=== PATIENT | female | born 1985 | race Caucasian/White ===

== ENCOUNTER 2018-11-07 17:12 | Inpatient (IN) | payer SELFPAY ==
[2018-11-07] MEDS ORDERED: OXYTOCIN 30 UNITS/LR 500 ML IV (18:00)
[2018-11-07] MEDS ORDERED: BUTORPHANOL 2 MG INJ IV (18:00)
[2018-11-07] MEDS ORDERED: CARBOPROST 250 MCG INJ IM (18:00)
[2018-11-07] MEDS ORDERED: IBUPROFEN 600 MG TAB PO (18:00)
[2018-11-07] MEDS ORDERED: MISOPROSTOL 200 MCG TAB PR (18:00)
[2018-11-07 18:03] LABS: ADD MAN DIFF? NO
[2018-11-07 18:05] LABS: BASOPHILS % 0.3 % (0.0-2.0); EOSINOPHILS # 0.1 10^3/ul (0.0-0.5); EOSINOPHILS % 1.3 % (0.0-7.0); HEMATOCRIT 36.4 % (37.0-47.0); HEMOGLOBIN 11.7 g/dl (12.0-16.0); LYMPHOCYTES # 1.6 10^3/ul (0.8-2.9); LYMPHOCYTES % 26.9 % (15.0-51.0); MEAN CORPUSCULAR HEMOGLOBIN 26.8 pg (29.0-33.0); MEAN CORPUSCULAR HGB CONC 32.1 g/dl (32.0-37.0); MEAN CORPUSCULAR VOLUME 83.5 fl (82.0-101.0); MONOCYTE # 0.7 10^3/ul (0.3-0.9); MONOCYTES % 10.8 % (0.0-11.0); NEUTROPHIL # 3.6 10^3/ul (1.6-7.5); NEUTROPHILS % 60.2 % (39.0-77.0); PLATELET COUNT 161 10^3/UL (140-415); RED BLOOD COUNT 4.36 10^6/ul (4.20-5.40); RED CELL DISTRIBUTION WIDTH 12.7 % (11.5-14.5)
[2018-11-07 18:25] LABS: INR 0.92; PROTIME 12.4 Sec (11.9-14.9)
[2018-11-07 18:26] LABS: PARTIAL THROMBOPLASTIN TIME 26.7 Sec (23.0-35.0)
[2018-11-07] MEDS: LACTATED RINGER'S 1,000 ML IV (18:56)
[2018-11-07 19:40] LABS: HEPATITIS B SURFACE ANTIGEN NEGATIVE (NEGATIVE)
[2018-11-07] MEDS: MISOPROSTOL 50 MCG CAPSULE VAG (20:29)
[2018-11-07] MEDS ORDERED: MISOPROSTOL 100 MCG TAB VAG (21:00)
[2018-11-08] MEDS: LACTATED RINGER'S 1,000 ML IV ×3 (00:31→11:23)
[2018-11-08] MEDS: MISOPROSTOL 50 MCG CAPSULE VAG ×3 (00:31→09:00)
[2018-11-08] MEDS ORDERED: NALOXONE (0.4 MG/ML) INJ IV (11:00)
[2018-11-08] MEDS ORDERED: KETOROLAC 30 MG INJ IV (11:00)
[2018-11-08] MEDS ORDERED: HYDROmorphONE 0.5 MG/0.5 ML SYG IV ×2 (11:00)
[2018-11-08] MEDS ORDERED: DIPHENHYDRAMINE 50 MG INJ IV (11:00)
[2018-11-08] MEDS: OXYTOCIN 30 UNITS/LR 500 ML IV ×4 (12:26→17:10)
[2018-11-08] MEDS: ONDANSETRON 4 MG INJ IV (13:24)
[2018-11-08] MEDS: LIDOCAINE 1% (MPF) 30 ML INJ INJ (14:04)
[2018-11-08] MEDS: FENTAnyl 2MCG/ML-ROPIV 0.2% 100 ML BAG EPI (14:04)
[2018-11-08 15:21] LABS: RAPID PLASMA REAGIN NONREACTIVE (NR)
[2018-11-08] MEDS: METHYLERGONOVINE 0.2 MG INJ IM (16:03)
[2018-11-08] MEDS ORDERED: OXYCODONE/ASPIRIN (4.88/325) TAB PO ×2 (16:30)
[2018-11-08] MEDS ORDERED: ONDANSETRON 4 MG INJ IV (16:30)
[2018-11-08] MEDS ORDERED: ACETAMINOPHEN 325 MG TAB PO (16:30)
[2018-11-08] MEDS ORDERED: HYDROCODONE/APAP (5/325) TAB PO (16:30)
[2018-11-08] MEDS: IBUPROFEN 600 MG TAB PO (18:00)
[2018-11-08] MEDS: BENZOCAINE 20% 56 ML SPRAY TOP (20:11)
[2018-11-08] MEDS: SENNA/DOCUSATE NA (8.6MG/50MG) TAB PO (20:11)
[2018-11-08] MEDS: LANOLIN HPA 1 PKT TOP (20:11)
[2018-11-08] MEDS: WITCH HAZEL/GLYCERIN PAD PR (20:11)
[2018-11-08] MEDS: HYDROCODONE/APAP (5/325) TAB PO (21:37)
[2018-11-09] MEDS: IBUPROFEN 600 MG TAB PO ×3 (00:09→11:37)
[2018-11-09 07:15] LABS: ADD MAN DIFF? NO
[2018-11-09 07:23] LABS: BASOPHILS % 0.3 % (0.0-2.0); EOSINOPHILS # 0.1 10^3/ul (0.0-0.5); EOSINOPHILS % 1.2 % (0.0-7.0); HEMATOCRIT 32.7 % (37.0-47.0); HEMOGLOBIN 10.7 g/dl (12.0-16.0); LYMPHOCYTES # 2.3 10^3/ul (0.8-2.9); LYMPHOCYTES % 25.2 % (15.0-51.0); MEAN CORPUSCULAR HGB CONC 32.7 g/dl (32.0-37.0); MEAN CORPUSCULAR VOLUME 82.4 fl (82.0-101.0); MEAN PLATELET VOLUME 10.4 fl (7.4-10.4); MONOCYTES % 10.5 % (0.0-11.0); NEUTROPHIL # 5.7 10^3/ul (1.6-7.5); NEUTROPHILS % 62.4 % (39.0-77.0); PLATELET COUNT 136 10^3/UL (140-415); RED BLOOD COUNT 3.97 10^6/ul (4.20-5.40); RED CELL DISTRIBUTION WIDTH 12.6 % (11.5-14.5)
[2018-11-09 07:23] LABS: WHITE BLOOD COUNT 9.1 10^3/ul (4.8-10.8)
[2018-11-09] MEDS: SENNA/DOCUSATE NA (8.6MG/50MG) TAB PO (08:34)
[2018-11-09 09:06] LABS: RUBELLA ANTIBODY - IGG 2.95 index; RUBELLA ANTIBODY - IGM <20.00 AU/mL
[2018-11-10] MEDS ORDERED: MEASLES,MUMPS,RUBELLA VACCINE INJ SC* (09:00)
== END 2018-11-09 19:03 | disposition home or self-care (01) | DRG 807 ==
LOC: L-D 17:12 → PP1 11-08 15:53
PROVIDERS: Obstetrics & Gynecology
PROC: 4A1HXCZ Monitoring of Products of Conception, Cardiac Rate, External Approach (ICD-10-PCS; 2018-11-07 17:00)
PROC: 3E0P7GC Introduction of Other Therapeutic Substance into Female Reproductive, Via Natural or Artificial Opening (ICD-10-PCS; 2018-11-07 17:00)
DX: O69.1XX0 Labor and delivery complicated by cord around neck, with compression, not applicable or unspecified (principal); O70.0 First degree perineal laceration during delivery; Z37.0 Single live birth; Z3A.39 39 weeks gestation of pregnancy
CPT/HCPCS: 62319; 76815; 85025; 85610; 85730; 86592; 86762; 86850; 86900; 86901; 87340; 99464